=== PATIENT | male | born 1995 | race American Indian/Alaskan Native ===

== ENCOUNTER 2021-04-06 20:34 | Emergency (ER) | payer MEDICAID ==
[2021-04-06 21:29] LABS: Basophils # (Auto) 0.1 K/mm3 (0.0-0.1); Eosinophils % (Auto) 0.8 % (0.0-4.3); Hematocrit 44.1 % (35.5-45.6); Hemoglobin 14.2 gm/dl (11.8-15.2); Lymphocytes # (Auto) 1.3 K/mm3 (1.2-5.4); Lymphocytes % (Auto) 33.4 % (13.4-35.0); Mean Corpuscular HGB Conc 32 % (32-34); Mean Corpuscular Volume 89 fl (84-94); Monocytes # (Auto) 0.2 K/mm3 (0.0-0.8); Monocytes % (Auto) 5.5 % (0.0-7.3); Platelet Count 234 K/mm3 (140-440); Red Blood Count 4.94 M/mm3 (3.65-5.03)
[2021-04-06 21:38] LABS: BUN/Creatinine Ratio 11; Blood Urea Nitrogen 9 mg/dL (9-20); Hemolysis Index 3
--- NOTE | 2021-04-06 22:55 | Emergency Department Report ---
ED Psych HPI - General Chief Complaint: Psych Stated Complaint: NEED PYCHE HOLD Time Seen by Provider: 04/06/21 21:04 Source: patient Mode of arrival: Ambulatory - History of Present Illness Initial Comments: Chief complaint: "I told my mother that I did not want to be here anymore." HPI: This is a 25-year-old male with history of schizophrenia who presents via EMS for "psychotic break". Mother informed EMS that since last Sunday patient has been hearing voices. He has the delusion that he is in the wrong home. He has been cooperative with medication. Patient denies suicidal or homicidal ideation. He denies hallucinations. MD Complaint: suicidal ideation, altered mental status, other (Delusional thought pattern) -: days(s) (10 days) Associated Psychiatric Symptoms: racing thoughts, delusions History of same: Yes Quality: constant Improves With: none Worsens With: none Associated Symptoms: denies other symptoms Treatments Prior to Arrival: other (EMS transport) - Related Data Previous Rx's Medication Instructions Recorded Last Taken Type risperiDONE [RisperDAL] 0 mg PO BID 30 Days #30 tablet 04/07/21 Unknown Rx traZODone [Desyrel] 50 mg PO QHS 30 Days #30 tab 04/07/21 Unknown Rx Allergies Allergy/AdvReac Type Severity Reaction Status Date / Time No Known Allergies Allergy Verified 04/06/21 20:53 ED Review of Systems ROS: Stated complaint: NEED PYCHE HOLD Other details as noted in HPI Comment: All other systems reviewed and negative Constitutional: denies: chills, fever, malaise Respiratory: denies: cough, shortness of breath Cardiovascular: denies: chest pain Gastrointestinal: denies: abdominal pain, nausea, vomiting Psychiatric: depression, auditory hallucinations, other (Delusional thought pattern) ED Past Medical Hx - Past Medical History Previous Medical History?: Yes Hx Psychiatric Treatment: Yes (Schizophrenia) - Surgical History Past Surgical History?: No - Social History Smoking Status: Never Smoker Substance Use Type: None - Medications Home Medications: Home Medications Medication Instructions Recorded Confirmed Last Taken Type risperiDONE [RisperDAL] 0 mg PO BID 30 Days #30 tablet 04/07/21 Unknown Rx traZODone [Desyrel] 50 mg PO QHS 30 Days #30 tab 04/07/21 Unknown Rx ED Physical Exam - General Limitations: No Limitations General appearance: alert, in no apparent distress - Head Head exam: Present: atraumatic, normocephalic - Eye Eye exam: Present: normal appearance - ENT ENT exam: Present: mucous membranes moist - Neck Neck exam: Present: normal inspection, full ROM - Respiratory Respiratory exam: Present: normal lung sounds bilaterally. Absent: respiratory distress, wheezes, rales, rhonchi - Cardiovascular Cardiovascular Exam: Present: regular rate, normal rhythm, normal heart sounds. Absent: systolic murmur, diastolic murmur, rubs, gallop - GI/Abdominal GI/Abdominal exam: Present: soft, normal bowel sounds. Absent: distended, tenderness, guarding, rebound - Rectal Rectal exam: Present: deferred - Extremities Exam Extremities exam: Present: normal inspection - Back Exam Back exam: Present: normal inspection - Neurological Exam Neurological exam: Present: alert, oriented X3 - Psychiatric Psychiatric exam: Present: depressed, flat affect, other (Appears to respond to internal stimuli.) - Skin Skin exam: Present: warm, dry, intact, normal color. Absent: rash ED Course Vital Signs 04/06/21 04/07/21 04/07/21 20:51 05:26 09:06 Temperature 98.6 F 98.4 F Pulse Rate 102 H 101 H Respiratory 18 18 18 Rate Blood Pressure 149/92 Blood Pressure 110/61 [Right] O2 Sat by Pulse 99 97 98 Oximetry 04/07/21 12:12 Temperature Pulse Rate Respiratory Rate Blood Pressure Blood Pressure [Right] O2 Sat by Pulse 98 Oximetry ED Medical Decision Making - Lab Data Result diagrams: 04/06/21 20:59 04/06/21 20:59 Laboratory Results - last 24 hr 04/06/21 04/06/21 04/06/21 20:59 20:59 20:59 WBC RBC Hgb Hct MCV MCH MCHC RDW Plt Count Lymph % (Auto) [place] % (Auto) Eos % (Auto) Baso % (Auto) Lymph # (Auto) [place] # (Auto) Eos # (Auto) Baso # (Auto) Seg Neutrophils % Seg Neutrophils # Sodium 140 Potassium 3.8 Chloride 100.7 Carbon Dioxide 27 Anion Gap 16 BUN 9 Creatinine 0.8 Estimated GFR > 60 BUN/Creatinine Ratio 11 Glucose 101 H Calcium 9.0 Salicylates < 0.3 L Acetaminophen 5.0 L Plasma/Serum Alcohol 04/06/21 04/06/21 20:59 20:59 WBC 3.9 L RBC 4.94 Hgb 14.2 Hct 44.1 MCV 89 MCH 29 MCHC 32 RDW 14.0 Plt Count 234 Lymph % (Auto) 33.4 [place] % (Auto) 5.5 Eos % (Auto) 0.8 Baso % (Auto) 3.0 H Lymph # (Auto) 1.3 [place] # (Auto) 0.2 Eos # (Auto) 0.0 Baso # (Auto) 0.1 Seg Neutrophils % 57.3 Seg Neutrophils # 2.2 Sodium Potassium Chloride Carbon Dioxide Anion Gap BUN Creatinine Estimated GFR BUN/Creatinine Ratio Glucose Calcium Salicylates Acetaminophen Plasma/Serum Alcohol < 0.01 - Medical Decision Making This is a 25-year-old male with history of schizophrenia presents with acute psychosis. Mother reported auditory hallucinations when delusional thought pattern. During my examination, he appears to be responding to internal stimuli. He answers questions in measured fashion while obviously distracted. He is medically clear for psychiatric care. I have ordered medication as needed for chemical restraint. CBC chemistry serum toxicology within normal limits. Patient is medically clear for psychiatric care. 1013 form completed. ED hold order in place. Awaiting treatment recommendations from mental health team. Critical care attestation.: If time is entered above; I have spent that time in minutes in the direct care of this critically ill patient, excluding procedure time. ED Disposition Clinical Impression: Schizophrenia, Acute psychosis Disposition: HOME / SELF CARE / HOMELESS Is pt being admited?: No Does the pt Need Aspirin: No Condition: Stable Instructions: Schizophrenia Additional Instructions: OUTPATIENT MENTAL HEALTH RESOURCES [facility], [facility] Cristino Burgos MD: [address] [place] [address] [place], [place] [id number] [facility]: [facility] [facility] [address] [address] [place] [address] [phone] [facility]: [facility]: [address] [place] [address] [address] [facility] [place] [address] [facility] [id number] [facility]: Shawn Douglas MD: [id number] [facility] [address] [facility] [address] [facility]: [address] [place] [phone] [place] CRISIS AND ACCESS LINE: Prescriptions: traZODone [Desyrel] 50 mg PO QHS 30 Days #30 tab risperiDONE [RisperDAL] 0 mg PO BID 30 Days #30 tablet Referrals: PRIMARY CARE, [Primary Care Provider] - 3-5 Days
[2021-04-07 03:13] LABS: Amphetamine Screen,Urine Negative; Benzodiazepines Screen,Urine Negative; Cannabinoid Screen,Urine Negative; Cocaine Screen,Urine Negative; Methadone Screen,Urine Negative; Opiate Screen,Urine Negative
[2021-04-07 03:27] LABS: Bilirubin,Urine NEG (Negative); Blood,Urine NEG (Negative); Color,Urine Yellow (Yellow); RBC,Urine < 1.0 /HPF (0.0-6.0)
[2021-04-07 03:31] LABS: WBC,Urine < 1.0 /HPF (0.0-6.0)
[2021-04-07 09:07] VITALS: BP 110/61
--- NOTE | 2021-04-07 11:00 | Consultation ---
History of Present Illness - Reason for Consult Consult date: 04/07/21 Reason for consult: mental health evaluation - History of Present Psychiatric Illness ED Note: This is a 25-year-old male with history of schizophrenia who presents via EMS for "psychotic break". Mother informed EMS that since last Sunday patient has been hearing voices. He has the delusion that he is in the wrong home. He has been cooperative with medication. Patient denies suicidal or homicidal ideation. He denies hallucinations. The patient is an 25 year old male with Schizophrenia, and Bipolar disorder. The patient was seen this morning. He is calm, alert and orient x2. he states he has been under a lot of stress " I was stressing because my BP is high ." He denies any current suicidal/homcidal ideation and denies hallucinations. PAST PSYCHIATRIC HISTORY: Diagnoses: Schizophrenia, Bipolar Suicide attempts or Self-harm behavior: Yes Prior psychiatric hospitalizations:yes Substance Abuse history:Denies Previous psychiatric medications tried: Unable to recall Outpatient treatment: Unknown PAST MEDICAL HISTORY: None reported or document Family Psychiatric History: None reported or documented SOCIAL HISTORY Marital Status: Single Living Arrangements: Lives with mother Employment Status: unemployed Access to guns/weapons: Denies Education: 12th grade History of Abuse: Denies Legal History: Denies REVIEW OF SYSTEMS Constitutional: Negative for weight loss ENT: Negative for stridor Respiratory: Negative for cough or hemoptysis All other systems reviewed and are negative MENTAL STATUS EXAMINATION General Appearance and Behavior: Age appropriate, good hygiene, wearing appropriate clothes. cooperative Cooperation: cooperative Psychomotor Behavior: Psychomotor normal Mood: "ok" Affect and affective range: congruent to stated mood Thought Process: Goal directed Thought Content:Reality oriented Speech: normal tone and pace Suicidal Ideation:Denies Homicidal Ideation: Denies Hallucinations: Denies Delusions: None elicited Impulse Control: Limited Insight and Judgment: Limited Memory: limited Attention: Distractible Orientation: alert and oriented Assessment and Plan (1) HX Schizophrenia disorder (2) Treatment Plan Case management Risperidone 1 mg po BID Trazodone 50mg po QHS Sitter: per primary Medical: per primary Disposition: Do not recommend acute psychiatric inpatient treatment. [employer] will provide patient with out patient resources. Will sign off. Thanks Case staffed with Dr. Akers Medications and Allergies Allergies Allergy/AdvReac Type Severity Reaction Status Date / Time No Known Allergies Allergy Verified 04/06/21 20:53 Home Medications Medication Instructions Recorded Confirmed Last Taken Type risperiDONE [RisperDAL] 0 mg PO BID 30 Days #30 tablet 04/07/21 Unknown Rx traZODone [Desyrel] 50 mg PO QHS 30 Days #30 tab 04/07/21 Unknown Rx Mental Status Exam - Vital signs Last Vital Signs Temp 98.4 F 04/07/21 09:06 Pulse 101 H 04/07/21 09:06 Resp 18 04/07/21 09:06 BP 110/61 04/07/21 09:06 Pulse Ox 98 04/07/21 09:06 Results Result Diagrams: 04/06/21 20:59 04/06/21 20:59 Abnormal lab results 04/06/21 04/06/21 04/06/21 Range/Units 20:59 20:59 20:59 WBC (4.5-11.0) K/mm3 Baso % (Auto) (0.0-1.8) % Glucose 101 H (75-100) mg/dL Salicylates < 0.3 L (2.8-20.0) mg/dL Acetaminophen 5.0 L (10.0-30.0) ug/mL 04/06/21 Range/Units 20:59 WBC 3.9 L (4.5-11.0) K/mm3 Baso % (Auto) 3.0 H (0.0-1.8) % Glucose (75-100) mg/dL Salicylates (2.8-20.0) mg/dL Acetaminophen (10.0-30.0) ug/mL All other labs normal.
--- NOTE | 2021-04-07 12:20 | Emergency Department Report ---
Blank Doc - Documentation Documentation: Chart reviewed. 25-year-old male with past medical history of schizophrenia with acute psychosis. Mental health consult performed and patient not deemed a candidate for inpatient therapy with plan to discharge her psychiatric meds
== END 2021-04-07 15:41 | disposition home or self-care (01) ==
LOC: EEVIPCON 20:34 → ED 20:34
DX: F20.9 Schizophrenia, unspecified (principal); Z20.822 Contact with and (suspected) exposure to COVID-19
CPT/HCPCS: 36415; 80048; 80307; 81001; 85025; 99284; U0003; 80320; G0480